=== PATIENT | male | born 1995 | race African-American/Black ===

== ENCOUNTER 2019-10-26 13:46 | Emergency (ER) | payer OTHER ==
[~2019-10-26] VITALS: Ht 172.7 cm; Wt 72.6 kg
[2019-10-26 14:19] VITALS: BP 121/73
== END 2019-10-26 14:41 | disposition home or self-care (01) ==
LOC: ER 13:46
DX: Z03.818 Encounter for observation for suspected exposure to other biological agents ruled out (principal)